=== PATIENT | female | born 1970 ===

== ENCOUNTER → 2017-10-11 | Outpatient (REF) ==
[2017-10-11 12:47] LABS: RUBELLA IgG QUALITATIVE IMMUNE (IMMUNE)
[2017-10-12 10:14] LABS: HERPES ZOSTER, VARICELLA IgG 508 index (Immune >165)
[2017-10-12 10:14] LABS: RUBEOLA IgG ANTIBODY >300.0 AU/mL (Immune >29.9)
== END ==
LOC: M LAB 11:31
DX: Z02.1 Encounter for pre-employment examination (principal)